=== PATIENT | male | born 1930 | race Caucasian/White ===

== ENCOUNTER 2016-12-01 10:30 | Day surgery (SDC) | payer MEDICARE, OTHER ==
[~2016-12-01] VITALS: Ht 180.3 cm; Wt 69.3 kg
[~2016-12-01 10:30] MED LIST: ASPIRIN 81M81 MG/TA2 PO; CORDARONE200 MG/TAB PO; DULCOLAX S10 MG/SUPP RC; HCTZ 25MG TAB25 MG PO; LEVOXYL0.125 MG PO; LUTEIN20 M1 PO; MIRALAX PA17 GM/Dose PO; NORCO 325 MG-51 TAB PO; NORVASC 5MG5 MG/TAB PO; PLAVIX 75MG TAB75 MG PO; SENNA8.6 MG PO; TYLENOL 325MG325 MG PO; ULTRAM 50MG TAB50 MG PO; ZOCOR 20MG20 MG PO
[2016-12-01 11:25] VITALS: BP 125/57; PULSE 59; TEMP 97.4
[2016-12-01 11:54] LABS: HEMATOCRIT 40.3 % (42.0-52.0); HEMOGLOBIN 13.5 g/dl (13.5-18.0); MEAN CELL VOLUME 90 fl (80.0-100.0); MEAN CORPUSCULAR HEMOGLOBIN 30 pg (27.0-31.0); MEAN CORPUSCULAR HGB CONC 34 g/dl (33.0-37.0); PLATELET COUNT 191 K/mm3 (130-400); REDCELL DISTRIBUTION WIDTH-CV 13.7 % (11.5-14.5); WHITE BLOOD COUNT 6.6 K/mm3 (4.8-10.8)
[2016-12-01 12:04] LABS: CREATININE, serum 1.04 mg/dL (0.66-1.25); POTASSIUM 3.7 mmol/L (3.4-5.0)
[2016-12-01] MEDS ORDERED: K-TAB20 PO (12:12)
[2016-12-01] MEDS ORDERED: FLOMAX 0.40.4 MG/CAP PO (12:13)
[2016-12-01] MEDS ORDERED: TIROSINT112 MC1 PO (12:14)
[2016-12-01 12:15] LABS: ADJUSTED CALCIUM 8.8 mg/dL (8.4-10.2); ALBUMIN 4.2 gm/dL (3.5-5.0); BILIRUBIN,TOTAL 1.1 mg/dL (0.0-1.0); CREATININE, serum 1.06 mg/dL (0.66-1.25); POTASSIUM 3.7 mmol/L (3.4-5.0); TOTAL PROTEIN 7.5 gm/dL (6.4-8.2)
[2016-12-01] MEDS ORDERED: COCONUT OIL 2525 ML PO (12:17)
[2016-12-01] MEDS ORDERED: COLACE 100100 MG/CAP PO (14:18)
[2016-12-01] MEDS ORDERED: NORCO 325 MG-51 TAB PO (14:18)
[2016-12-01] MEDS ORDERED: MOTRIN 600600 MG/TAB PO (14:19)
[2016-12-01 14:40] VITALS: BP 111/51; PULSE 54; TEMP 97.5
[2016-12-01 15:00] VITALS: BP 104/64; PULSE 54
[2016-12-01 15:15] VITALS: BP 123/57; PULSE 54
[2016-12-01 15:25] VITALS: TEMP 97.4
[2016-12-01 15:30] VITALS: BP 134/67; PULSE 59
== END 2016-12-01 18:01 | disposition home or self-care (01) ==
LOC: SDCO 10:30
PROVIDERS: Nurse Anesthetist, Certified Registered; Surgery
DX: K80.20 Calculus of gallbladder without cholecystitis without obstruction (principal); K82.8 Other specified diseases of gallbladder; I25.10 Atherosclerotic heart disease of native coronary artery without angina pectoris; I48.91 Unspecified atrial fibrillation; I10 Essential (primary) hypertension; E03.9 Hypothyroidism, unspecified; E78.5 Hyperlipidemia, unspecified; K57.30 Diverticulosis of large intestine without perforation or abscess without bleeding; E87.6 Hypokalemia; M19.90 Unspecified osteoarthritis, unspecified site; Z95.1 Presence of aortocoronary bypass graft; Z87.438 Personal history of other diseases of male genital organs
CPT/HCPCS: J0694; J1100; J1170; J2405; J7120; Q9967

== ENCOUNTER 2017-08-25 12:38 | Day surgery (SDC) | payer MEDICARE, OTHER ==
[2017-08-25] VITALS (10 sets, daily range): BP systolic 131–207; BP diastolic 72–95; PULSE 58–66; TEMP 98–98.2
[~2017-08-25] VITALS: Ht 180.3 cm; Wt 71.8 kg
[~2017-08-25 12:38] MED LIST changes: +COCONUT OIL 2525 ML PO; +COLACE 100100 MG/CAP PO; +FLOMAX 0.40.4 MG/CAP PO; +K-TAB20 PO; +MOTRIN 600600 MG/TAB PO; +TIROSINT112 MC1 PO
[2017-08-25 13:09] LABS: HEMATOCRIT 43.6 % (42.0-52.0); HEMOGLOBIN 14.5 g/dl (13.5-18.0); MEAN CELL VOLUME 91 fl (80.0-100.0); MEAN CORPUSCULAR HEMOGLOBIN 30 pg (27.0-31.0); MEAN CORPUSCULAR HGB CONC 33 g/dl (33.0-37.0); MEAN PLATELET VOLUME 8.7 fl (7.4-10.4); PLATELET COUNT 178 K/mm3 (130-400); RED BLOOD COUNT 4.78 M/mm3 (4.20-5.60); REDCELL DISTRIBUTION WIDTH-CV 13.3 % (11.5-14.5)
[2017-08-25 13:15] LABS: INR 1.2 (0.8-3.0); PROTHROMBIN TIME 13.4 SECONDS (9.7-12.8)
[2017-08-25 13:19] LABS: CALCIUM 9.1 mg/dL (8.4-10.2); CREATININE, serum 1.3 mg/dL (0.66-1.25); POTASSIUM 3.8 mmol/L (3.4-5.0)
== END 2017-08-25 17:45 | disposition home or self-care (01) ==
LOC: COL.CAR 12:38
PROVIDERS: Internal Medicine Interventional Cardiology
DX: I25.10 Atherosclerotic heart disease of native coronary artery without angina pectoris (principal); I12.9 Hypertensive chronic kidney disease with stage 1 through stage 4 chronic kidney disease, or unspecified chronic kidney disease; N18.9 Chronic kidney disease, unspecified; E03.9 Hypothyroidism, unspecified; Z79.82 Long term (current) use of aspirin; Z95.1 Presence of aortocoronary bypass graft
CPT/HCPCS: J1940; J2250; J3010; Q9967